=== PATIENT | female | born 1990 | race Caucasian/White ===

== ENCOUNTER 2021-05-26 09:39 | Outpatient (CLI) | payer OTHER ==
[2021-05-27 09:12] LABS: SARS-CoV-2 PCR by NAA Not Detected (NotDetected)
== END 2021-05-26 09:40 | disposition home or self-care (01) ==
LOC: CSHLAB 09:39
PROVIDERS: ATTEND Obstetrics & Gynecology
DX: Z20.822 Contact with and (suspected) exposure to COVID-19 (principal)
CPT/HCPCS: U0003; U0005

== ENCOUNTER 2021-05-30 05:16 | Inpatient (IN) | payer OTHER ==
[2021-05-30 05:43] VITALS: BMI 31.3
[2021-05-30] MEDS ORDERED: Docusate 100 MG CAP PO PRN (06:54)
[2021-05-30] MEDS ORDERED: Ondansetron PF 4 MG/2 ML Vial IVP PRN ×3 (06:54→19:08)
[2021-05-30] MEDS ORDERED: ceFAZolin 2 GM/Dextrose 50 ML 2 GM in Premix Bag 1 BAG IVPB SCH (06:54)
[2021-05-30] MEDS ORDERED: Famotidine/PF 20 mg/2ml Vial SLOW IVP PRN (06:54)
[2021-05-30] MEDS ORDERED: Bicitra 30 ML UDCUP PO PRN (06:54)
[2021-05-30] MEDS ORDERED: hydrALAZINE 20 MG/ML VIAL SLOW IVP PRN ×2 (06:54→19:08)
[2021-05-30] MEDS ORDERED: Promethazine HCl 25 MG/ML VIAL IM PRN ×2 (06:54→17:28)
[2021-05-30 07:18] LABS: Hemoglobin 10.2 g/dL (12.0-15.5); Mean Corpuscular HGB CONC 33.6 g/dL (32.0-36.0); Mean Corpuscular Volume 92.4 fl (81.6-98.3); Mean Platelet Volume 10.9 fl (7.4-10.4); Platelet Count 226 10x3/uL (150-450); RBC Distribution Width 13.3 % (11.5-14.5); Red Blood Cell (RBC) Count 3.29 10x6/uL (3.90-5.03); White Blood Cell (WBC) Count 8.6 10x3/uL (3.5-10.5)
[2021-05-30 07:37] LABS: HIV (1/2) Antibody/Antigen Non-Reactive (NonReactive); HIV 1/2 INDEX 0.07 S/CO (<1.00); Hep B Surf Ag Non-Reactive S/CO (NonReactive)
[2021-05-30 07:38] LABS: Syphilis Antibody Nonreactive (Nonreactive); Syphilis Antibody Index 0.08 S/CO (<1.00 Non-Reactive)
[2021-05-30] MEDS ORDERED: ceFAZolin 2 GM/Dextrose 50 ML IVPB ONE (16:55)
[2021-05-30] MEDS: Lactated Ringer's 1,000 ML IV SCH ×3 (17:02→20:02)
[2021-05-30] MEDS ORDERED: Morphine PF 10 MG/10 ML VIAL ONE (17:05)
[2021-05-30] MEDS ORDERED: Fentanyl 100 MCG/2 ML VIAL ONE (17:05)
[2021-05-30] MEDS ORDERED: Ondansetron PF 4 MG/2 ML Vial ONE (17:06)
[2021-05-30] MEDS ORDERED: Oxytocin 10 UNITS/ML VIAL ONE ×2 (17:06→17:15)
[2021-05-30] MEDS ORDERED: Dexamethasone 4 mg/ml Vial ONE (17:06)
[2021-05-30] MEDS ORDERED: Ketorolac Tromethamine 30 MG/ML VIAL ONE (17:06)
[2021-05-30] MEDS ORDERED: Phenylephrine 40 MG/NS 250 ML 250 ML ONE (17:15)
[2021-05-30] MEDS ORDERED: ePHEDrine Sulfate 50 MG/10 ML VIAL ONE (17:22)
[2021-05-30] MEDS ORDERED: Naloxone HCl 0.4 mg/ml Vial IV PRN (17:28)
[2021-05-30] MEDS ORDERED: Ketorolac Tromethamine 30 MG/ML VIAL IVP PRN (17:28)
[2021-05-30] MEDS ORDERED: Hydrocerin (Eucerin) Cream 120 gm Jar TOP PRN (17:28)
[2021-05-30] MEDS ORDERED: Fentanyl 100 MCG/2 ML VIAL SLOW IVP PRN (17:28)
[2021-05-30] MEDS ORDERED: L&D-Morphine 4 MG/ML VIAL SLOW IVP PRN (17:28)
[2021-05-30] MEDS ORDERED: diphenhydrAMINE 50 MG/ML VIAL IVP PRN (17:28)
[2021-05-30] MEDS ORDERED: Naloxone HCl 0.4 mg/ml Vial IVP PRN ×2 (17:28)
[2021-05-30] MEDS ORDERED: Ondansetron HCl/PF 4 MG/2 ML Vial IVP PRN (17:28)
[2021-05-30] MEDS ORDERED: Meperidine HCl/PF 25 MG/ML VIAL SLOW IVP PRN (17:28)
[2021-05-30] MEDS ORDERED: Promethazine HCl 25 MG SUPP PR PRN (17:28)
[2021-05-30] MEDS ORDERED: Ketorolac Tromethamine 30 MG/ML VIAL IVP SCH (17:30)
[2021-05-30] MEDS ORDERED: Communication Order-Pharmacy FS SCH (17:30)
[2021-05-30 19:01] LABS: HBSAg Index 0.21 S/CO (0-0.99)
[2021-05-30] MEDS ORDERED: Misoprostol 200 MCG TAB PR PRN (19:08)
[2021-05-30] MEDS ORDERED: Lanolin Ointment 7 GM TUBE TOP PRN (19:08)
[2021-05-30] MEDS ORDERED: Acetaminophen 325 MG TAB PO PRN (19:08)
[2021-05-30] MEDS ORDERED: Bisacodyl 10 MG SUPP PR PRN (19:08)
[2021-05-30] MEDS ORDERED: diphenhydrAMINE 25 MG CAP PO PRN (19:08)
[2021-05-30] MEDS ORDERED: NS w/ Oxytocin 30 units 500 ML IV SCH (19:15)
[2021-05-30] MEDS ORDERED: Ferrous Sulfate 325 MG TAB PO SCH (19:30)
[2021-05-30] MEDS ORDERED: Morphine 4 MG/ML VIAL ONE (20:19)
[2021-05-30] MEDS: Docusate 100 MG CAP PO SCH (21:54)
[2021-05-31 04:53] LABS: Hemoglobin 8.2 g/dL (12.0-15.5); Mean Corpuscular HGB CONC 32.2 g/dL (32.0-36.0); Mean Corpuscular Hemoglobin 30.6 pg (27.0-33.0); Mean Corpuscular Volume 95.1 fl (81.6-98.3); Mean Platelet Volume 10.5 fl (7.4-10.4); Platelet Count 180 10x3/uL (150-450); RBC Distribution Width 13.4 % (11.5-14.5); Red Blood Cell (RBC) Count 2.68 10x6/uL (3.90-5.03); White Blood Cell (WBC) Count 14.4 10x3/uL (3.5-10.5)
[2021-05-31] MEDS ORDERED: HYDROcodone/Acetaminophen 5/325 mg Tablet PO PRN (05:30)
[2021-05-31] MEDS ORDERED: Zolpidem Tartrate 5 MG TAB PO PRN (05:30)
[2021-05-31] MEDS: Lactated Ringer's 1,000 ML IV SCH ×3 (06:42→17:07)
[2021-05-31] MEDS ORDERED: Boostrix 0.5 ML (Tdap) VIAL IM ONE (09:00)
[2021-05-31] MEDS: Prenatal Vitamin 1 TAB PO SCH (09:49)
[2021-05-31] MEDS: HYDROcodone/Acetaminophen 5/325 mg Tablet PO PRN ×4 (09:49→21:50)
[2021-05-31] MEDS: Docusate 100 MG CAP PO SCH ×2 (09:50→21:49)
[2021-05-31] MEDS: Ferrous Sulfate 325 MG TAB PO SCH ×2 (09:50→17:44)
[2021-05-31] MEDS: Simethicone Chewable 80 MG TAB PO PRN ×2 (13:27→17:44)
[2021-05-31] MEDS: Ibuprofen 800 MG TAB PO SCH (21:49)
[2021-06-01] MEDS: HYDROcodone/Acetaminophen 5/325 mg Tablet PO PRN ×3 (04:18→12:29)
[2021-06-01] MEDS: Ibuprofen 800 MG TAB PO SCH ×2 (06:02→13:40)
[2021-06-01] MEDS: Lactated Ringer's 1,000 ML IV SCH ×2 (07:23→12:31)
[2021-06-01 07:54] VITALS: BP 121/65; TEMP 97.6
[2021-06-01] MEDS: Prenatal Vitamin 1 TAB PO SCH (07:56)
[2021-06-01] MEDS: Docusate 100 MG CAP PO SCH (07:56)
[2021-06-01] MEDS: Ferrous Sulfate 325 MG TAB PO SCH (07:56)
== END 2021-06-01 13:45 | disposition home or self-care (01) | DRG 788 ==
LOC: CSHLD 05:16 → CSHPP 21:18
PROVIDERS: ADMIT Obstetrics & Gynecology; ATTEND Obstetrics & Gynecology
PROC: 10D00Z1 Extraction of Products of Conception, Low, Open Approach (ICD-10-PCS; principal; 2021-05-30)
DX: O34.211 Maternal care for low transverse scar from previous cesarean delivery (principal); Z37.0 Single live birth; Z3A.39 39 weeks gestation of pregnancy; Z20.822 Contact with and (suspected) exposure to COVID-19; O99.824 Streptococcus B carrier state complicating childbirth; Z98.890 Other specified postprocedural states; Z79.899 Other long term (current) drug therapy
CPT/HCPCS: 36415; 51702; 85027; 86780; 86850; 86900; 86901; 87340; 87389; J0690; J1100; J1885; J2270; J2274; J2405; J2590; J3010; J7120